=== PATIENT | female | born 1975 | race Caucasian/White ===

== ENCOUNTER 2017-02-02 13:26 | Emergency (ER) | payer OTHER ==
--- NOTE | 2017-02-02 13:37 | PDOC ---
History of Present Illness - General Stated Complaint: FINGER LACERATION Time Seen by Provider: 02/02/17 13:32 History Source: Patient, Old Records Exam Limitations: No Limitations - History of Present Illness Initial Comments: 02/02/17 13:32 41-year-old female with no significant past medical history presents to the emergency Department with complaints of laceration to her left middle digit that was done accidentally when she was opening something and cut her finger on a sharp knife. She is right-hand dominant. She denies numbness or tingling to her hand/finger. Review of Systems - Review of Systems Able to Perform ROS?: Yes Is the patient limited Romanian proficient: No Constitutional: No: Symptoms Reported HEENTM: No: Symptoms Reported Integumentary: Yes: See HPI *Physical Exam - Physical Exam Comments: 02/02/17 13:33 GENERAL: Well developed, well nourished. Awake and alert. No acute distress. HEENT: Normocephalic, atraumatic. PERRLA, EOMI. No conjunctival pallor. Sclera are non- icteric. Moist mucous membranes. Oropharynx is clear. MUSCULOSKELETAL Normal range of motion at all joints. No bony deformities or tenderness. No CVA tenderness. EXTREMITIES: Left middle digit: there is a 1 cm superficial laceration to the radial aspect of the middle phalynx region of the digit. There is full ROM of the digit and sensory and motor exams are intact. SKIN: Warm and dry. Normal capillary refill. No rashes. No jaundice. NEUROLOGICAL: Alert, awake, appropriate. Cranial nerves 2-12 intact. Grossly non-focal exam. Medical Decision Making - Medical Decision Making 02/02/17 13:35 41-year-old female with superficial laceration to the left middle digit with no active bleeding at this time. The wound has already started to approximate therefore will not stitch but will apply a layer of Dermabond after irrigation and cleansing. Wound care has been discussed with the patient. We'll discharge home and the patient can follow-up with her primary care physician as needed. *DC/Admit/Observation/Transfer Diagnosis at time of Disposition: Laceration of left middle finger - Discharge Dispostion Disposition: HOME Condition at time of disposition: Stable Admit: No - Patient Instructions Additional Instructions: Keep wound clean and dry. Return to the ED if the wound appears red, swollen, purulent drainage or any other symptoms.
[2017-02-02 13:54] VITALS: BP 137/66; PULSE 83; TEMP 98.4; BMI 32.5
== END 2017-02-02 13:56 | disposition home or self-care (01) ==
LOC: FER 13:26 → SUPCPDRO 13:26 → FER 13:56
PROC: 0HQGXZZ Repair Left Hand Skin, External Approach (ICD-10-PCS; principal; 2017-02-02)
DX: S61.213A Laceration without foreign body of left middle finger without damage to nail, initial encounter (principal); W26.0XXA Contact with knife, initial encounter; Y93.89 Activity, other specified; Y92.89 Other specified places as the place of occurrence of the external cause
CPT/HCPCS: 99282-25

== ENCOUNTER 2019-03-23 09:19 | Emergency (ER) | payer OTHER ==
[2019-03-23 09:33] VITALS: TEMP 98.8; BMI 29.9
--- NOTE | 2019-03-23 09:37 | PDOC ---
History of Present Illness - General Chief Complaint: Chest Pain Stated Complaint: BURNING CHEST PAIN Time Seen by Provider: 03/23/19 09:30 History Source: Patient Exam Limitations: No Limitations - History of Present Illness Initial Comments: 03/23/19 09:50 Nichole Barragan is a 43yF w PMHx HLD presenting w chest pain. Woke up at 5am with sudden onset constant midsternal, L and R chest pain. Associated dizziness and weakness worse w sitting up/standing, nausea, vomited x1. Denies fever, headache , cough, SOB, AB pain, urinary/bowel movement changes. Past History - Past Medical History Allergies/Adverse Reactions: Allergies Allergy/AdvReac Type Severity Reaction Status Date / Time No Known Allergies Allergy Verified 03/23/19 09:23 Home Medications: Ambulatory Orders NK [No Known Home Medication] 02/02/17 COPD: No Hypercholesterolemia: Yes - Immunization History TDAP Vaccination: (2016) - Psycho Social/Smoking Cessation Hx Smoking History: Never smoked Have you smoked in the past 12 months: No Information on smoking cessation initiated: No Hx Alcohol Use: No Drug/Substance Use Hx: No Substance Use Type: None Review of Systems - Review of Systems Constitutional: No: Chills, Fever HEENTM: No: Eye Pain, Nose Pain, Throat Pain, Mouth Pain Respiratory: No: Cough, Shortness of Breath Cardiac (ROS): Yes: Chest Pain. No: Palpitations, Syncope ABD/GI: Yes: Nausea, Vomiting. No: Abdominal Distended, Constipated, Diarrhea : No: Burning, Dysuria, Discharge, Frequency, Flank Pain, Hematuria Musculoskeletal: No: Back Pain, Joint Swelling, Muscle Pain Integumentary: No: Bruising, Dryness, Erythema Neurological: No: Headache, Numbness, Seizure, Tingling, Tremors Psychiatric: No: Anxiety, Depression, Stressors Endocrine: No: Excessive Sweating, Flushing, Intolerance to Cold, Intolerance to Heat Hematologic/Lymphatic: No: Anemia, Blood Clots *Physical Exam - Vital Signs Last Vital Signs Temp Pulse Resp BP Pulse Ox 98.8 F 90 18 123/81 100 03/23/19 09:19 03/23/19 09:19 03/23/19 09:19 03/23/19 09:19 03/23/19 09:19 - Physical Exam General Appearance: Yes: Nourished, Appropriately Dressed, Mild Distress HEENT: positive: EOMI, FESTUS, Normal Voice, Hearing Grossly Normal. negative: Nasal Congestion, Rhinorrhea Respiratory/Chest: positive: Chest Tender (midsternal, L/R chest tender w palpation), Lungs Clear, Normal Breath Sounds. negative: Respiratory Distress, Crackles, Rales, Rhonchi, Stridor, Wheezing Cardiovascular: positive: Regular Rhythm, Regular Rate, S1, S2. negative: Edema , Murmur Extremity: positive: Delayed Capillary Refill (3s). negative: Pedal Edema Integumentary: positive: Normal Color. negative: Diaphoresis, Hives, Petechiae , Rash Neurologic: positive: director immunology II-XII NML intact, Fully Oriented, Alert, Normal Mood/ Affect, Normal Response, Responsive. negative: Numbness, Confused, Disoriented ED Treatment Course - LABORATORY CBC & Chemistry Diagram: 03/23/19 09:45 03/23/19 09:45 - ADDITIONAL ORDERS Additional order review: Laboratory Results 03/23/19 03/23/19 09:45 09:45 Sodium 132 L Potassium 4.1 Chloride 101 Carbon Dioxide 27 Anion Gap 4 L BUN 13.0 Creatinine 0.6 Est GFR (CKD-EPI)AfAm 127.58 Est GFR (CKD-EPI)NonAf 110.08 Random Glucose 98 Calcium 8.3 L Total Bilirubin 0.6 AST 18 ALT 21 Alkaline Phosphatase 57 Troponin I < 0.03 Total Protein 7.4 Albumin 4.1 03/23/19 09:45 RBC 4.64 MCV 85.9 MCHC 33.8 RDW 13.0 MPV 7.1 L Neutrophils % 87.3 H Lymphocytes % 8.1 Monocytes % 3.0 L Eosinophils % 1.4 Basophils % 0.2 - Medications Given in the ED: ED Medications Discontinued Medications Generic Name Dose Route Start Last Admin Trade Name Freq PRN Reason Stop Dose Admin Acetaminophen 1,000 mg 03/23/19 09:41 03/23/19 10:02 Ofirmev Injection - IVPB 03/23/19 09:42 1,000 mg ONCE ONE Administration Famotidine/Sodium Chloride 20 mg in 50 mls @ 100 mls/hr 03/23/19 09:42 09:57 Pepcid 20 Mg Premixed Ivpb - IVPB 03/23/19 10:11 100 mls/hr ONCE ONE Administration Sodium Chloride 1,000 ml 03/23/19 09:43 03/23/19 09:50 Normal Saline - IV 03/23/19 09:44 1,000 ml ONCE ONE Administration Medical Decision Making - Medical Decision Making 03/23/19 09:43 CBC CMP trop CXR EKG tylenol pepcid 1L NS EKG shows NSR, HR 88, QTc 428, no ST changes CBC, CMP normal, neg trop Nichole Barragan is a 43yF w PMHx HLD presenting w 1d chest pain likely d/t costochondritis (chest tenderness w palpation). No evidence of anemia (normal Hgb) or ACS w neg trop, NSR EKG. PE ruled out w PERC criteria. Given tylenol, pepcid for pain, 1L NS for dehydration. D/c home with instructions to take OTC pepcid/maalox and PCP f/u appointment tomorrow Discharge - Discharge Information Problems reviewed: Yes Clinical Impression/Diagnosis: Chest pain Qualifiers: Chest pain type: unspecified Qualified Code(s): R07.9 - Chest pain, unspecified Condition: Stable Disposition: HOME - Admission No - Follow up/Referral Referrals: Janina Cardona [Primary Care Provider] - - Patient Discharge Instructions Patient Printed Discharge Instructions: DI for Chest Pain Additional Instructions: You were seen for chest pain. Your labs and workup does not show anything concerning. You were given medication for your pain. Please see your primary care doctor at your appointment tomorrow. You can take over the counter pepcid and maalox as directed on package if you continue to have chest pain Come back to the ED if you have worsening chest pain, shortness of breath, or throw up blood. - Post Discharge Activity
[2019-03-23] MEDS ORDERED: ACETAMINOPHEN 1000 MG/100 ML VIAL (NON FORMULARY) IVPB ONE (09:41)
--- NOTE | 2019-03-23 09:41 | PDOC ---
Attending Attestation - Resident Resident Name: Andrew Osborne - ED Attending Attestation I have performed the following: I have examined & evaluated the patient, The case was reviewed & discussed with the resident, I agree w/resident's findings & plan, Exceptions are as noted - HPI HPI: 03/23/19 10:55 43 years old with no significant past medical history except for hyperlipidemia work from sleep with midsternal burning chest discomfort very positional worse when leaning forward alleviated by sitting back one episode of nausea vomiting no radiation nonexertional history of similar burning-type situations. Moderate in severity intermittent exacerbated by position alleviated by rest. - Physicial Exam PE: 03/23/19 10:55 Vitals: Triage Vital signs reviewed General Appearance: no acute distress, well nourished well developed, Cardiac: Regular rate and rhythym, no murmurs, no rubs, no gallops, Lungs: Clear to auscultation bilateral, good air movement bilaterally, Abdomen: Soft, non distended, normal bowel sounds, non tender to palpation Extremities: Full range of motion to all extremities, no cyanosis, clubbing, or edema Skin: Warm and dry, no rashes or lesions, no rash, no petechiae Psych: normal mood, normal affect - Medical Decision Making 03/23/19 10:56 Atypical chest pain more likely GI given burning in nature positional changes with leaning forward no evidence of pericarditis on EKG. 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 Heart Score/ECG Review - History History: Slightly suspicious - Electrocardiogram EKG: Normal - Age Age: 45-65 - Risk Factors Risk Factors Heart Score: Yes Hx Hypercholesterolemia, Yes Hx Obesity Based on the list above the patient has:: 1-2 risk factors - Troponin Troponin: </= normal limit - Score Heart Score - Total: 2 - ECG Impressions Comment:: 03/23/19 10:56 EKG performed that 928 demonstrates normal sinus rhythm no ST elevations no T- wave inversions Interpreted by me.
[2019-03-23] MEDS ORDERED: FAMOTIDINE 20 MG/50 ML IVPB 20 MG/50 ML MG IVPB ONE ×2 (09:42→09:55)
[2019-03-23] MEDS ORDERED: SODIUM CHLORIDE 0.9% 500 ML INFUS.BAG IV ONE (09:43)
[2019-03-23] MEDS ORDERED: ACETAMINOPHEN INJECTION 100 ML IVPB ONE (09:55)
[2019-03-23 10:00] LABS: BASO % 0.2 % (0-2.0); EOS % 1.4 % (0-4.5); HEMATOCRIT 39.9 % (32.4-45.2); HEMOGLOBIN 13.5 GM/dl (10.7-15.3); LYMPH % 8.1 % (8-40); MCHC 33.8 g/dl (32.0-36.0); MEAN CELL VOLUME 85.9 fl (80-96); MEAN PLT VOLUME 7.1 fl (7.5-11.1); NEUT % 87.3 % (42.8-82.8); PLATELET COUNT 322 K/MM3 (134-434); RBC 4.64 M/mm3 (3.60-5.2); WHITE BLOOD COUNT 9.8 K/mm3 (4.0-10.8)
[2019-03-23 10:14] LABS: ALBUMIN 4.1 g/dl (3.4-5.0); BILIRUBIN,TOTAL 0.6 mg/dl (0.2-1); CALCIUM 8.3 mg/dl (8.5-10); CREATININE 0.6 mg/dl (0.55-1.3); POTASSIUM 4.1 mmol/L (3.5-5.1); TOT PROT 7.4 g/dl (6.4-8.2)
[2019-03-23 11:23] VITALS: BP 119/76; PULSE 87
--- NOTE | 2019-03-24 12:12 | EKG ---
Test Reason : Blood Pressure : / mmHG Vent. Rate : 088 BPM Atrial Rate : 088 BPM P-R Int : 148 ms QRS Dur : 084 ms QT Int : 354 ms P-R-T Axes : 001 023 021 degrees QTc Int : 428 ms NORMAL SINUS RHYTHM NORMAL ECG NO PREVIOUS ECGS AVAILABLE Confirmed by YANDY SALEH, LUCIO ([id number]) on 03/24/2019 12:12:44 PM Referred By: CONRAD WOODWARD Confirmed By:LUCIO KEBEDE MD
== END 2019-03-23 11:15 | disposition home or self-care (01) ==
LOC: FER 09:19
PROC: 3E033NZ Introduction of Analgesics, Hypnotics, Sedatives into Peripheral Vein, Percutaneous Approach (ICD-10-PCS; principal; 2019-03-23)
PROC: 3E033GC Introduction of Other Therapeutic Substance into Peripheral Vein, Percutaneous Approach (ICD-10-PCS; 2019-03-23)
PROC: 3E0337Z Introduction of Electrolytic and Water Balance Substance into Peripheral Vein, Percutaneous Approach (ICD-10-PCS; 2019-03-23)
DX: R07.9 Chest pain, unspecified (principal)
CPT/HCPCS: 36415; 80053; 84484; 85025; 93005; 96365; 96375; 99285-25; J0131